=== PATIENT | female | born 1980 | race Caucasian/White ===

== ENCOUNTER 2017-06-30 01:56 | Emergency (ER) | payer OTHER ==
[~2017-06-30] VITALS: Ht 172.7 cm; Wt 113.4 kg
[~2017-06-30 01:56] MED LIST: Amphetamine Sal20 MG PO; Ativan1 MG SL; CEPH500; CLON.5 PO; Cyclobenzaprine5 MG PO; FLUC150A PO; Flagyl500 MG PO; GABA300 PO; HYDPAM100 PO; IBUP600 PO; IBUP800 PO; Keflex500 MG PO; LAMO100 PO; LIDO700A20 TOP; Loxapine5 MG PO; METPHE5 PO; METR500 PO; Macrodantin100 MG PO; NALT50 PO; Omeprazole20 M1; PRAZ2 PO; Pyridium200 MG PO; TRAZ100 PO; Vistaril25 MG PO; Zofran Odt4 MG SL
[2018-02-12] MEDS ORDERED: OXYB5 PO
[2018-02-12] MEDS ORDERED: AMPDEX10CR PO
[2018-02-12] MEDS ORDERED: Naltrexone HCl50 MG PO (00:01)
[2018-02-12] MEDS ORDERED: METF500C PO (00:02)
[2018-02-12] MEDS ORDERED: Hair, Skin & N1 EACH PO (00:02)
[2018-02-12] MEDS ORDERED: CALCIUM WITH V1 EACH PO (00:03)
[2018-02-12] MEDS ORDERED: Loxapine5 MG PO (00:03)
[2018-02-12] MEDS ORDERED: ALBU90OI INH (00:05)
[2018-02-12] MEDS ORDERED: CYCL10 PO (00:05)
== END 2017-06-30 03:25 | disposition home or self-care (01) ==
LOC: ER 01:56
DX: S30.861A Insect bite (nonvenomous) of abdominal wall, initial encounter (principal); R21 Rash and other nonspecific skin eruption; F41.9 Anxiety disorder, unspecified; F31.9 Bipolar disorder, unspecified; J45.909 Unspecified asthma, uncomplicated; Z88.0 Allergy status to penicillin; Z79.899 Other long term (current) drug therapy; Z87.891 Personal history of nicotine dependence; Z86.19 Personal history of other infectious and parasitic diseases; W57.XXXA Bitten or stung by nonvenomous insect and other nonvenomous arthropods, initial encounter
CPT/HCPCS: 99282; Q0163

== ENCOUNTER → 2017-12-26 | Outpatient (CLI) | payer OTHER | LOC: EDSTATUS 14:44 → LAB SHORT 20:00 → LAB 20:00 | DX: N39.0 Urinary tract infection, site not specified (principal) | CPT/HCPCS: 87077; 87086; 87186 ==

== ENCOUNTER 2018-02-01 13:47 | Emergency (ER) | payer OTHER ==
[2018-02-01] MEDS ORDERED: IBUP400 PO (16:30)
[2018-02-02] MEDS ORDERED: [UNRECOGNIZED DRUG - OTHER] (20:14)
[2018-02-02] MEDS ORDERED: LATUDA20 MG PO (20:15)
[2018-02-02] MEDS ORDERED: ONDA8 PO (20:15)
[2018-02-02] MEDS ORDERED: Ativan1 MG SL (21:50)
== END 2018-02-01 14:28 | disposition left against medical advice (07) ==
LOC: ER 13:47
DX: Z53.21 Procedure and treatment not carried out due to patient leaving prior to being seen by health care provider (principal)

== ENCOUNTER 2018-02-01 14:41 | Emergency (ER) | payer OTHER ==
[~2018-02-01] VITALS: Ht 172.7 cm; Wt 113.8 kg
[2018-02-01 15:03] LABS: Source, Urine Clean Catch
[2018-02-01 15:06] LABS: Bilirubin, Urine Neg (Neg); Blood, Urine Neg (Neg); Glucose Qualitative, Urine Neg (Neg); Ketones, Urine Neg (Neg); Leukocyte Esterase, Urine Neg (Neg); Nitrite, Urine Neg (Neg); Protein, Urine Neg (Neg); Specific Gravity, Urine 1.025 (1.003-1.022); Urobilinogen, Urine NORM (Normal)
[2018-02-01 15:20] LABS: Appearance, Urine Clear (Clear); Color, Urine Yellow (P-Yellow)
[2018-02-01] MEDS ORDERED: IBUP400 PO (16:30)
[2018-02-01 19:22] LABS: Candida species (DNA Probe) Negative (NEGATIVE); G. vaginalis (DNA Probe) Negative (NEGATIVE); T. vaginalis (DNA Probe) Negative (NEGATIVE)
[2018-02-02] MEDS ORDERED: [UNRECOGNIZED DRUG - OTHER] (20:14)
[2018-02-02] MEDS ORDERED: ONDA8 PO (20:15)
[2018-02-02] MEDS ORDERED: LATUDA20 MG PO (20:15)
[2018-02-02] MEDS ORDERED: Ativan1 MG SL (21:50)
== END 2018-02-01 16:45 | disposition home or self-care (01) ==
LOC: ER 14:41
PROVIDERS: Emergency Medicine; Physician Assistant
DX: N89.8 Other specified noninflammatory disorders of vagina (principal); F90.9 Attention-deficit hyperactivity disorder, unspecified type; F43.10 Post-traumatic stress disorder, unspecified; Z88.0 Allergy status to penicillin; Z79.899 Other long term (current) drug therapy; F31.9 Bipolar disorder, unspecified; F41.9 Anxiety disorder, unspecified; J45.909 Unspecified asthma, uncomplicated; F17.200 Nicotine dependence, unspecified, uncomplicated
CPT/HCPCS: 36415; 81003; 81025; 87480; 87510; 87660; 99283

== ENCOUNTER 2018-02-02 19:41 | Emergency (ER) | payer OTHER ==
[~2018-02-02] VITALS: Ht 172.7 cm; Wt 113.8 kg
[~2018-02-02 19:41] MED LIST changes: +IBUP400 PO
[2018-02-02] MEDS ORDERED: [UNRECOGNIZED DRUG - OTHER] (20:14)
[2018-02-02] MEDS ORDERED: ONDA8 PO (20:15)
[2018-02-02] MEDS ORDERED: LATUDA20 MG PO (20:15)
[2018-02-02 20:34] LABS: BASOPHILS ABSOLUTE AUTO 0.04 K/mm3 (0.00-0.23); BASOPHILS PERCENT AUTO 0 % (0-2); EOSINOPHILS ABSOLUTE AUTO 0.27 K/mm3 (0.00-0.68); EOSINOPHILS PERCENT AUTO 3 % (0-6); Hematocrit 40.6 % (33.0-51.0); Hemoglobin 12.9 g/dL (11.5-16.0); IMMATURE GRAN ABSOLUTE AUTO 0.05 K/mm3 (0.00-0.10); IMMATURE GRAN PERCENT AUTO 1 % (0-1); LYMPHOCYTES ABSOLUTE AUTO 3.24 K/mm3 (0.84-5.20); LYMPHOCYTES PERCENT AUTO 33 % (21-46); MONOCYTES ABSOLUTE AUTO 0.51 K/mm3 (0.16-1.47); MONOCYTES PERCENT AUTO 5 % (4-13); Mean Corpuscular HGB 27.9 pg (26.0-34.0); Mean Corpuscular HGB Conc 31.8 g/dL (31.5-36.5); Mean Corpuscular Volume 88 fL (80-100); Mean Platelet Volume 9.6 fL (9.1-12.4); NEUTROPHILS ABSOLUTE AUTO 5.85 K/mm3 (1.96-9.15); NEUTROPHILS PERCENT AUTO 59 % (41-73); Platelet Count 334 K/mm3 (150-400); RDW Coefficient Variation 13.9 % (11.7-14.2); RDW Standard Deviation 44.9 fL (35.1-46.3); Red Blood Cell Count 4.62 M/mm3 (3.80-5.20); White Blood Cell Count 9.96 K/mm3 (4.00-11.30)
[2018-02-02 20:43] LABS: Alanine Aminotransfer (ALT/SGP 34 U/L (12-78); Albumin, Blood 3.7 g/dL (3.4-5.0); Albumin/Globulin Ratio 0.9 (0.8-1.8); Alk Phos 78 U/L (50-136); Anion Gap 3 mmol/L (6-16); Aspartate Aminotrans (AST/SGOT 23 U/L (12-37); Bilirubin, Total 0.1 mg/dL (0.1-1.0); Blood Urea Nitrogen 15 mg/dL (8-24); Bun/Creatinine Ratio 19.4 (12.0-20.0); CO2, Blood 31 mmol/L (21-32); Calcium, Blood 8.9 mg/dL (8.5-10.1); Chloride, Blood 105 mmol/L (98-108); Creatinine, Blood 0.77 mg/dL (0.40-1.00); Globulin, Blood 4.3 g/dL (2.2-4.0); Glomerular Filtration Rate >60 (60-); Glucose, Blood 94 mg/dL (70-99); Potassium, Blood 4.1 mmol/L (3.5-5.5); Sodium, Blood 139 mmol/L (136-145)
[2018-02-02] MEDS ORDERED: Ativan1 MG SL (21:50)
== END 2018-02-02 22:16 | disposition home or self-care (01) ==
LOC: ER 19:41
PROVIDERS: Emergency Medicine
DX: F19.939 Other psychoactive substance use, unspecified with withdrawal, unspecified (principal); F15.23 Other stimulant dependence with withdrawal; R56.9 Unspecified convulsions; Z88.0 Allergy status to penicillin; Z79.899 Other long term (current) drug therapy; F31.9 Bipolar disorder, unspecified; F90.9 Attention-deficit hyperactivity disorder, unspecified type; F41.9 Anxiety disorder, unspecified; J45.909 Unspecified asthma, uncomplicated; F17.210 Nicotine dependence, cigarettes, uncomplicated
CPT/HCPCS: 36415; 80053; 85025; 99283

== ENCOUNTER 2018-02-03 16:23 | Emergency (ER) | payer OTHER ==
[~2018-02-03] VITALS: Ht 172.7 cm; Wt 97.5 kg
[~2018-02-03 16:23] MED LIST changes: +LATUDA20 MG PO; +ONDA8 PO; +[UNRECOGNIZED DRUG - OTHER]
== END 2018-02-03 17:05 | disposition home or self-care (01) ==
LOC: ER 16:23
DX: R56.9 Unspecified convulsions (principal); F19.939 Other psychoactive substance use, unspecified with withdrawal, unspecified; F31.9 Bipolar disorder, unspecified; F41.9 Anxiety disorder, unspecified; F17.210 Nicotine dependence, cigarettes, uncomplicated; Z88.0 Allergy status to penicillin; Z79.899 Other long term (current) drug therapy
CPT/HCPCS: 99281

== ENCOUNTER 2018-02-12 20:21 | Emergency (ER) | payer OTHER ==
[~2018-02-12] VITALS: Ht 172.7 cm; Wt 117.9 kg
[~2018-02-12 20:21] MED LIST changes: +ALBU90OI INH; +AMPDEX10CR PO; +CALCIUM WITH V1 EACH PO; +CYCL10 PO; +Hair, Skin & N1 EACH PO; +METF500C PO; +Naltrexone HCl50 MG PO; +OXYB5 PO
[2018-02-12 21:40] LABS: BASOPHILS ABSOLUTE AUTO 0.03 K/mm3 (0.00-0.23); BASOPHILS PERCENT AUTO 0 % (0-2); EOSINOPHILS ABSOLUTE AUTO 0.24 K/mm3 (0.00-0.68); EOSINOPHILS PERCENT AUTO 3 % (0-6); Hematocrit 39.4 % (33.0-51.0); Hemoglobin 12.6 g/dL (11.5-16.0); IMMATURE GRAN ABSOLUTE AUTO 0.02 K/mm3 (0.00-0.10); IMMATURE GRAN PERCENT AUTO 0 % (0-1); LYMPHOCYTES ABSOLUTE AUTO 3.04 K/mm3 (0.84-5.20); LYMPHOCYTES PERCENT AUTO 37 % (21-46); MONOCYTES ABSOLUTE AUTO 0.52 K/mm3 (0.16-1.47); MONOCYTES PERCENT AUTO 6 % (4-13); Mean Corpuscular HGB 28.3 pg (26.0-34.0); Mean Corpuscular Volume 88 fL (80-100); Mean Platelet Volume 9.4 fL (9.1-12.4); NEUTROPHILS PERCENT AUTO 53 % (41-73); Platelet Count 333 K/mm3 (150-400); RDW Coefficient Variation 14.1 % (11.7-14.2); RDW Standard Deviation 45.4 fL (35.1-46.3); Red Blood Cell Count 4.46 M/mm3 (3.80-5.20); White Blood Cell Count 8.15 K/mm3 (4.00-11.30)
[2018-02-12 21:57] LABS: Alanine Aminotransfer (ALT/SGP 67 U/L (12-78); Albumin, Blood 3.7 g/dL (3.4-5.0); Albumin/Globulin Ratio 0.9 (0.8-1.8); Alk Phos 74 U/L (50-136); Anion Gap 5 mmol/L (6-16); Aspartate Aminotrans (AST/SGOT 33 U/L (12-37); Bilirubin, Total 0.2 mg/dL (0.1-1.0); Blood Urea Nitrogen 16 mg/dL (8-24); Bun/Creatinine Ratio 19.1 (12.0-20.0); CO2, Blood 30 mmol/L (21-32); Calcium, Blood 8.6 mg/dL (8.5-10.1); Chloride, Blood 105 mmol/L (98-108); Creatinine, Blood 0.84 mg/dL (0.40-1.00); Globulin, Blood 4.2 g/dL (2.2-4.0); Glomerular Filtration Rate >60 (60-); Glucose, Blood 97 mg/dL (70-99); Potassium, Blood 3.9 mmol/L (3.5-5.5); Sodium, Blood 140 mmol/L (136-145); Total Protein, Blood 7.9 g/dL (6.4-8.2)
== END 2018-02-12 23:52 | disposition home or self-care (01) ==
LOC: ER 20:21
PROVIDERS: Emergency Medicine
DX: R56.9 Unspecified convulsions (principal); Z88.0 Allergy status to penicillin; Z88.5 Allergy status to narcotic agent; Z79.899 Other long term (current) drug therapy; F31.9 Bipolar disorder, unspecified; F90.9 Attention-deficit hyperactivity disorder, unspecified type; E11.9 Type 2 diabetes mellitus without complications; F41.9 Anxiety disorder, unspecified; J45.909 Unspecified asthma, uncomplicated; F17.200 Nicotine dependence, unspecified, uncomplicated
CPT/HCPCS: 36415; 80053; 85025; 99284

== ENCOUNTER 2018-03-08 08:56 | Emergency (ER) | payer OTHER ==
[~2018-03-08] VITALS: Ht 172.7 cm; Wt 117.9 kg
[2018-03-08] MEDS ORDERED: HYDHCL25 PO (09:26)
[2018-03-08] MEDS ORDERED: Naprosyn500 MG PO (09:56)
[2018-03-08] MEDS ORDERED: Amoxicillin875 MG PO (09:56)
== END 2018-03-08 10:10 | disposition home or self-care (01) ==
LOC: ER 08:56
DX: H66.91 Otitis media, unspecified, right ear (principal); F31.9 Bipolar disorder, unspecified; F41.9 Anxiety disorder, unspecified; J45.909 Unspecified asthma, uncomplicated; E11.9 Type 2 diabetes mellitus without complications; F17.290 Nicotine dependence, other tobacco product, uncomplicated; Z88.5 Allergy status to narcotic agent; Z79.899 Other long term (current) drug therapy; Z79.84 Long term (current) use of oral hypoglycemic drugs
CPT/HCPCS: 99282

== ENCOUNTER 2018-10-02 13:06 | Emergency (ER) | payer SELFPAY ==
[~2018-10-02] VITALS: Ht 172.7 cm; Wt 117.9 kg
[~2018-10-02 13:06] MED LIST changes: +Amoxicillin875 MG PO; +HYDHCL25 PO; +Naprosyn500 MG PO
[2018-10-02 16:32] LABS: Source, Urine Clean Catch
[2018-10-02 16:39] LABS: Appearance, Urine Clear (Clear); Bilirubin, Urine Neg (Neg); Blood, Urine 1+ (Neg); Color, Urine Yellow (P-Yellow); Glucose Qualitative, Urine Neg (Neg); Ketones, Urine Neg (Neg); Leukocyte Esterase, Urine Neg (Neg); Nitrite, Urine Neg (Neg); Protein, Urine Neg (Neg); Specific Gravity, Urine 1.015 (1.003-1.022); Urobilinogen, Urine NORM (Normal)
[2018-10-02 16:47] LABS: Bacteria Rare /hpf; Red Blood Cells, Urine Not Seen /hpf (0-2); Squamous Epithelial Cells Few /hpf (Few); White Blood Cells, Urine Not Seen /hpf (0-5)
[2018-10-02] MEDS ORDERED: PRAZ2 PO (16:53)
[2018-10-02] MEDS ORDERED: METF500 PO (16:55)
[2018-10-02] MEDS ORDERED: TRAZ100 PO (16:55)
[2018-10-02] MEDS ORDERED: LATUDA20 MG PO (16:55)
[2018-10-02] MEDS ORDERED: Flagyl500 MG PO (16:55)
[2018-10-02] MEDS ORDERED: PRAZ5 PO (16:55)
== END 2018-10-02 17:07 | disposition home or self-care (01) ==
LOC: ER 13:06
PROVIDERS: Emergency Medicine
DX: N76.0 Acute vaginitis (principal); E11.9 Type 2 diabetes mellitus without complications; F31.9 Bipolar disorder, unspecified; Z59.0 Homelessness; Z79.899 Other long term (current) drug therapy; Z79.84 Long term (current) use of oral hypoglycemic drugs
CPT/HCPCS: 81001; 81025; 82947; 99283

== ENCOUNTER 2020-02-17 16:21 | Emergency (ER) | payer OTHER ==
[~2020-02-17] VITALS: Ht 172.7 cm; Wt 121.9 kg
[~2020-02-17 16:21] MED LIST changes: +B-121000 MC3 PO; +CHLO25 PO; +METF500 PO; -METF500C PO; +NEURONTIN300 MG PO; +PRAZ5 PO
== END 2020-02-17 20:40 | disposition home or self-care (01) ==
LOC: ER 16:21
DX: R05 Cough (principal); Z20.1 Contact with and (suspected) exposure to tuberculosis; F31.9 Bipolar disorder, unspecified; F90.9 Attention-deficit hyperactivity disorder, unspecified type; E11.9 Type 2 diabetes mellitus without complications; F41.9 Anxiety disorder, unspecified; J45.909 Unspecified asthma, uncomplicated; F17.200 Nicotine dependence, unspecified, uncomplicated; Z88.0 Allergy status to penicillin; Z88.5 Allergy status to narcotic agent; Z79.84 Long term (current) use of oral hypoglycemic drugs; Z79.899 Other long term (current) drug therapy
CPT/HCPCS: 71046; 99283-25

== ENCOUNTER 2022-04-26 05:40 | Emergency (ER) | payer OTHER ==
[~2022-04-26] VITALS: Ht 165.1 cm; Wt 136.1 kg
[2022-04-26] MEDS ORDERED: NAPR500 PO (05:50)
== END 2022-04-26 06:02 | disposition home or self-care (01) ==
LOC: ER 05:40
DX: Z04.89 Encounter for examination and observation for other specified reasons (principal); E11.9 Type 2 diabetes mellitus without complications; F17.200 Nicotine dependence, unspecified, uncomplicated; Z88.0 Allergy status to penicillin; Z88.5 Allergy status to narcotic agent; Z79.84 Long term (current) use of oral hypoglycemic drugs; Z79.899 Other long term (current) drug therapy
CPT/HCPCS: 99284

== ENCOUNTER 2022-10-10 22:04 | Emergency (ER) | payer OTHER ==
[~2022-10-10] VITALS: Ht 172.7 cm; Wt 113.4 kg
[~2022-10-10 22:04] MED LIST changes: +NAPR500 PO; +Robaxin750 MG PO
[2022-10-10 22:18] VITALS: BP 130/90
== END 2022-10-10 23:03 | disposition home or self-care (01) ==
LOC: ER 22:04
DX: M54.42 Lumbago with sciatica, left side (principal); Z88.0 Allergy status to penicillin; Z88.5 Allergy status to narcotic agent; Z79.899 Other long term (current) drug therapy; Z79.84 Long term (current) use of oral hypoglycemic drugs; E11.9 Type 2 diabetes mellitus without complications; R56.9 Unspecified convulsions; J45.909 Unspecified asthma, uncomplicated; F17.200 Nicotine dependence, unspecified, uncomplicated
CPT/HCPCS: J1885